=== PATIENT | male | born 1995 | race Two or more races ===

== ENCOUNTER 2023-09-05 22:16 | Emergency (ER) | payer SELFPAY ==
[~2023-09-05] VITALS: Ht 182.9 cm; Wt 127.3 kg
[2023-09-06 00:53] VITALS: PULSE 86; RESP 20; O2SAT 97
[2023-09-06] MEDS ORDERED: MORPHINE SULFATE 4 MG/ML SYR/VIAL IV ONE (01:15)
[2023-09-06] MEDS ORDERED: ONDANSETRON HCL 4 MG/2 ML VIAL IV ONE (01:15)
[2023-09-06 02:10] VITALS: BP 114/69; PULSE 86; RESP 14; TEMP 99.3; O2SAT 95
== END 2023-09-06 01:18 ==
LOC: ER 22:16 → EDBD 22:16 → ER 09-06 01:18
DX: S06.5XAA Traumatic subdural hemorrhage with loss of consciousness status unknown, initial encounter (principal); S16.1XXA Strain of muscle, fascia and tendon at neck level, initial encounter; V49.88XA Car occupant (driver) (passenger) injured in other specified transport accidents, initial encounter; Y93.89 Activity, other specified; Y92.89 Other specified places as the place of occurrence of the external cause; Y99.8 Other external cause status
CPT/HCPCS: 70450; 71250; 72040; 72125; 74176; 96374; 96375; 99285; J2270; J2405

== ENCOUNTER 2025-08-04 22:36 | Emergency (ER) | payer MEDICAID ==
[~2025-08-04] VITALS: Ht 180.3 cm; Wt 95.3 kg
[2025-08-04 22:40] VITALS: BP 142/91; RESP 16; TEMP 97.6; O2SAT 97
--- NOTE | 2025-08-04 22:57 | ED.PDOC ---
History of Present Illness HPI Comments 30 y/o M, with a Hx of HLD, is BIBA from private residence for c/c of nonradiating, substernal chest pain and palpitations. Patient reports on ongoing pain all day, today, following initial, unprovoked and atraumatic onset after waking up, this morning. Pain is a pressure-like in quality and a 4/10 in severi ty. No modifiers commented on. No endorsement of any recent stressors, strenuous activities, sick contacts, or further pertinent history, lifestyle changes, or events. Denial of any shortness of breath, nausea, vomiting, or further associated symptoms. 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 Past Medical History PAST MEDICAL HISTORY: High Lipids Surgical History: Denies all surgeries Family History Family History: Reviewed,noncontributory to illness, No family hx of Cancer, No family hx of DM, No family hx of Heart luigi, No family hx of HTN, No family hx ofKidney luigi, No family hx of Liver luigi, No family hx of Lung luigi, No family hx of Stroke Social History Smoker: Non-Smoker Alcohol: Denies ETOH Use Drugs: Denies Drug Use Lives In: Home All Other Systems: Reviewed and Negative (Comprehensive review of systems are negative unless stated in HPI) Physical Exam General Appearance: No Apparent Distress, Normal, Other (anxious affect ) HEENT: Normal ENT Inspection, Pharynx Normal, TMs Normal Neck: Full Range of Motion, Non-Tender, Normal, Normal Inspection Respiratory: Chest Non-Tender, Lungs Clear, No Accessory Muscle Use, No Respiratory Distress, Normal Breath Sounds Cardiovascular: No Edema, No JVD, No Murmur, No Gallop, Normal Peripheral Pulses, Regular Rate/Rhythm Breast Exam: Deferred Gastrointestinal: No Organomegaly, Non Tender, No Pulsatile Mass, Normal Bowel Sounds, Soft Genitalia: Deferred Pelvic: Deferred Rectal: Deferred Extremities: No calf tenderness, Normal capillary refill, Normal inspection, Normal range of motion, Non-tender, No pedal edema Musculoskeletal : Apperance: Normal Neurologic: Alert, diploma pharmacy technician II-XII nml as Tested, No Motor Deficits, Normal Mood, No Sensory Deficits, Other (anxious affect ) Cerebellar Function: Normal Reflexes: Normal Skin: Dry, Normal Color, Warm Lymphatic: No Adenopathy Was a procedure done? Was a procedure done?: No Differential Dx Considerations may include: WA, PE, ACS, URI, PNA, viral syndrome, anxiety, angina, gastritis, among others X-Ray, Labs, Meds, VS Vital Signs Date Time Temp Pulse Resp B/P (MAP) Pulse Ox O2 Delivery O2 Flow Rate FiO2 08/05/25 02:28 Room Air* 0 21 08/05/25 01:35 76 08/04/25 23:31 79 08/04/25 22:40 83 08/04/25 22:40 97.6 86 16 142/91 97 97.6 Lab Test 08/04/25 23:55 08/04/25 22:55 Range/Units Troponin I High Sensitivity < 3 L < 3 L </=54 ng/L White Blood Count 10.6 4.4-10.8 10^3/uL Red Blood Count 5.34 4.5-5.90 10^6/uL Hemoglobin 17.7 H 13.5-17.5 g/dL Hematocrit 49.2 41.0-53.0 % Mean Corpuscular Volume 92.2 80.0-100.0 fL Mean Corpuscular Hemoglobin 33.1 H 28.0-32.0 pg Mean Corpuscular Hemoglobin Concent 35.9 32.0-36.0 g/dL Red Cell Distribution Width 12.6 11.8-14.3 % Platelet Count 319 140-450 10^3/uL Mean Platelet Volume 6.9 6.9-10.8 fL Neutrophils (%) (Auto) 66.1 37.0-80.0 % Lymphocytes (%) (Auto) 23.7 10.0-50.0 % Monocytes (%) (Auto) 7.4 0.0-12.0 % Eosinophils (%) (Auto) 2.3 0.0-7.0 % Basophils (%) (Auto) 0.5 0.0-2.0 % Neutrophils # (Auto) 7.0 1.6-8.6 10 ^3/uL Lymphocytes # (Auto) 2.5 0.4-5.4 10 ^3/uL Monocytes # (Auto) 0.8 0-1.3 10 ^3/uL Eosinophils # (Auto) 0.2 0-0.8 10 ^3/uL Basophils # (Auto) 0.1 0-0.2 10 ^3/uL Nucleated Red Blood Cells 0.3 % Sodium Level 140 136-145 mmol/L Potassium Level 3.4 L 3.5-5.1 mmol/L Chloride Level 106 98-107 mmol/L Carbon Dioxide Level 25 20-31 mmol/L Anion Gap 9 5-15 Blood Urea Nitrogen 10 9-23 mg/dL Creatinine 1.11 0.700-1.30 mg/dL Glomerular Filtration Rate Calc 92 >90 mL/min BUN/Creatinine Ratio 9.0 L 10.0-20.0 Serum Glucose 94 74-106 mg/dL Calcium Level 9.6 8.7-10.4 mg/dL Total Bilirubin 1.8 H 0.2-1.0 mg/dL Aspartate Amino Transferase (AST) 23 13-40 U/L Alanine Aminotransferase (ALT) 22 7-40 U/L Alkaline Phosphatase 85 46-116 U/L Total Protein 8.3 H 5.7-8.2 g/dL Albumin 4.8 3.2-4.8 g/dL [place] [id number] Ph: [phone] DIAGNOSTIC IMAGING Diagnostic Imaging Report : [id number] Signed PATIENT: NIKOLE PRESSLEY ACCT: [id number] UNIT: [id number] : 1995 LOC: ER ROOM / BED: / AGE / SEX: 30 / M ADM STATUS: REG ER SERVICE 46 ORDERING PHYSICIAN: MAGY MYERS MD PROCEDURE(s): CXRP - CHEST PORTABLE REASON: chest pain ORDER NUMBER(s): [id number], ACCESSION NUMBER(s): [id number] CHEST RADIOGRAPH Indication: chest pain Technique: Single frontal view of the chest was obtained COMPARISON: None FINDINGS: Lungs and pleural spaces are clear. Cardiac silhouette and cipriano are within normal limits. Bones and soft tissues demonstrate no significant abnormality. IMPRESSION: 1. No acute disease. ATED BY: KARMA MERA MD DICTATED DATE/TIME: 08/04/252341 SIGNED BY: KARMA MERA MD SIGNED DATE/TIME: 08/04/252341 CC: Time of 1ST Reevaluation: 23:20 Reevaluation 1ST: Unchanged Patient Education/Counseling: Treatment, Need For Follow Up Family Education/Counseling: No Family Present SEPSIS Sepsis Screen Date sepsis recognized/suspect: Aug 04, 2025 Time Sepsis recognized/suspect: 2243 Recent Procedure: No On Antibiotic Therapy: No Respiratory Rate >20: No Heart Rate >90: No Temp<36 C (96.8 F) or >38.3 C: No SBP <90 or MAP <65 mmHG: No New Acute Mental Status Change: No Is the patient on CPAP, BIPAP,: No Physician Orders Electrocardigram (08/04/25 22:47) Electrocardigram (08/04/25 23:47) Chest Portable (08/04/25 22:47) Vital Signs Date Time Temp Pulse Resp B/P (MAP) Pulse Ox O2 Delivery O2 Flow Rate FiO2 08/05/25 02:28 Room Air* 0 21 08/05/25 01:35 76 08/04/25 23:31 79 08/04/25 22:40 83 08/04/25 22:40 97.6 86 16 142/91 97 97.6 Laboratory Tests Test 08/04/25 22:55 White Blood Count 10.6 10^3/uL (4.4-10.8) Departure 1 Departure Time of Disposition: 01:00 Impression: Primary Impression: Atypical chest pain Additional Impression: Palpitations Disposition: 01 HOME / SELF CARE / HOMELESS Condition: Stable Discharged With: Self Critical Care Note Critical Care Time?: No Stability Stability form required: No Heart Score Heart Score: Heart Score Response (Comments) Value History Slightly Suspicious 0 EKG Normal 0 Age <45 0 Risk Factors 1 or 2 risk factors 1 Troponin Normal limit 0 Total 1 I personally scribed for MAGY MYERS MD ([email or web address]) on 08/04/25 at 22:57. Electronically submitted by Andre Lazcano ([email or web address]). I personally scribed for MAGY MYERS MD ([email or web address]) on 08/05/25 at 00:28. Electronically submitted by Andre Lazcano ([email or web address]). MAGY MYERS MD Aug 04, 2025 22:57
[2025-08-04 23:20] LABS: Alanine Aminotransferase 22 U/L (7-40); Alkaline Phosphatase 85 U/L (46-116); Anion Gap 9 (5-15); BUN/Creatinine Ratio 9.0 (10.0-20.0); Blood Urea Nitrogen 10 mg/dL (9-23); Calcium 9.6 mg/dL (8.7-10.4); Carbon Dioxide 25 mmol/L (20-31); Chloride 106 mmol/L (98-107); Glucose 94 mg/dL (74-106); Sodium 140 mmol/L (136-145)
[2025-08-04 23:21] LABS: Albumin 4.8 g/dL (3.2-4.8); Hematocrit 49.2 % (41.0-53.0); Hemoglobin 17.7 g/dL (13.5-17.5); Mean Corpuscular Hemoglobin 33.1 pg (28.0-32.0); Mean Corpuscular Volume 92.2 fL (80.0-100.0); Nucleated Red Blood Cells % 0.3 %; Potassium 3.4 mmol/L (3.5-5.1); Total Protein 8.3 g/dL (5.7-8.2)
[2025-08-04 23:31] LABS: Bilirubin, Total 1.8 mg/dL (0.2-1.0)
--- NOTE | 2025-08-04 23:44 | DVH ---
CHEST RADIOGRAPH Indication: chest pain Technique: Single frontal view of the chest was obtained COMPARISON: None FINDINGS: Lungs and pleural spaces are clear. Cardiac silhouette and cipriano are within normal limits. Bones and s oft tissues demonstrate no significant abnormality. IMPRESSION: 1. No acute disease.
[2025-08-05 01:35] VITALS: PULSE 76
--- NOTE | 2025-08-05 01:38 | ECG ---
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
--- NOTE | 2025-08-05 16:18 | ECG ---
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
--- NOTE | 2025-08-05 16:18 | ECG ---
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
== END 2025-08-05 02:30 | disposition home or self-care (01) ==
LOC: EDBD 22:36 → ER 22:36
DX: R07.89 Other chest pain (principal); R00.2 Palpitations; E78.5 Hyperlipidemia, unspecified; Z79.899 Other long term (current) drug therapy
CPT/HCPCS: 36415; 71045; 80053; 84484; 85025; 93005